=== PATIENT | female | born 1980 | race Caucasian/White ===

== ENCOUNTER 2018-07-17 15:25 | Outpatient (CLI) | payer BC, SELFPAY ==
[2018-07-17 15:47] LABS: HCT 40.4 % (36.0-46.0); HGB 13.6 g/dL (12.0-15.5); Mean Corp. HGB Concentration 33.7 g/dL (32.0-36.0); Mean Corpuscular Hemoglobin 31.9 pg (27.0-33.0); Mean Corpuscular Volume 94.6 fL (80-95); Mean Platelet Volume 10.8 fL (8.0-11.0); Platelet Count 250 x1000/uL (130-400); RBC 4.27 m/cumm (4.00-5.20); RBC Distribution Width 12.5 % (11.7-14.6); White Blood Cell Count 7.45 k/cumm (4.4-10.8)
[2018-07-17 16:57] LABS: TSH (W/Ref FT4) 2.21 uIU/mL (0.358-3.74)
== END 2018-07-17 15:45 ==
PROVIDERS: Visit Provider Nurse Practitioner Women's Health
DX: N92.0 Excessive and frequent menstruation with regular cycle (principal); R63.4 Abnormal weight loss
CPT/HCPCS: 36415; 85027; 84443

== ENCOUNTER 2018-07-22 10:31 | Outpatient (REF) | payer BC, SELFPAY ==
[2018-07-23 14:36] LABS: Chlamydia Result Negative; GC Result Negative; Specimen Description CERVIX
== END 2018-07-22 10:51 ==
LOC: LBN 10:31
PROVIDERS: Visit Provider Nurse Practitioner Women's Health
DX: Z11.3 Encounter for screening for infections with a predominantly sexual mode of transmission (principal)
CPT/HCPCS: 87491; 87591

== ENCOUNTER 2019-11-09 18:12 | Outpatient (REF) | payer OTHER, SELFPAY ==
[2019-11-09 17:33] LABS: Bilirubin Negative (Negative); Blood Trace-intact (Negative); Clarity Clear (Clear); Glucose Negative (Negative); Ketones Trace mg/dL (Negative); Leukocyte Esterase Negative (Negative); Nitrite Negative (Negative); Specific Gravity >= 1.030 (1.005-1.025); Urobilinogen 0.2 EU/dL (Up TO 0.2); pH 5.5 (5-8)
[2019-11-09 17:36] LABS: C & S Indicated? C&S Done As Ordered
[2019-11-09 17:57] LABS: Bacteria Negative HPF (Negative); Casts Negative LPF (Negative); Crystals Negative HPF (Negative); Epithelial Cells Moderate HPF (Negative); Mucus Negative (Negative); Other Cells Negative (Negative); RBC Negative HPF (0-2); WBC 0-2 HPF (0-5)
[2019-11-11 13:20] LABS: Chlamydia Result Negative (Negative); GC Result Negative (Negative)
== END 2019-11-09 18:32 ==
LOC: LBN 18:12
PROVIDERS: Visit Provider Obstetrics & Gynecology
DX: R10.2 Pelvic and perineal pain (principal); Z87.442 Personal history of urinary calculi; Z11.3 Encounter for screening for infections with a predominantly sexual mode of transmission
CPT/HCPCS: 87491; 87591; 81003; 81015; 87086

== ENCOUNTER 2019-11-12 02:06 | Outpatient (CLI) | payer OTHER, SELFPAY ==
--- NOTE | 2019-11-12 07:30 | DI.US_ITS ---
EXAM: US RENAL PELVIC TRANSVAGINAL CLINICAL HISTORY: pelvic pain, IUD in place,R10.2, H/O RENAL CALCULI, BACK PAIN. TECHNIQUE: Transabdominal and transvaginal exams were performed. Bernardo scale, color and spectral Doppler were used. COMPARISON: No exams were available for comparison FINDINGS: Renal ultrasound: Renal size in cm: Right: 10.9 cm left: 12.0 cm Echogenicity: Normal Hydronephrosis: No Cyst or mass: No Nephrolithiasis: No Bladder:Normal both ureteral jets were visualized. Prevoid vol:294 cc Postvoid vol:7 cc Pelvic ultrasound: The uterus measures 7.8 x 3.7 x 6.1 cm. An IUD is noted within the endometrium an d appears appropriately positioned. A 12 millimeter fundal fibroid is seen. The ovaries are normal in size. There is an involuting cyst of the right ovary. There is a trace amount of fluid in the cul-de-sac, likely physiologic. IMPRESSION: No evidence of hydronephrosis or renal calculi. The IUD appears appropriately positioned. DATA REPOSITORY:
== END 2019-11-12 02:26 ==
PROVIDERS: Visit Provider Obstetrics & Gynecology
DX: R10.2 Pelvic and perineal pain (principal); Z97.5 Presence of (intrauterine) contraceptive device; D25.9 Leiomyoma of uterus, unspecified
CPT/HCPCS: 76770; 76830; 76856

== ENCOUNTER → 2020-09-15 03:48 | Outpatient (CLI) | payer OTHER, SELFPAY ==
--- NOTE | 2020-09-15 | DI.RAD_ITS ---
EXAM: XR LUMBAR SPINE COMPLETE CLINICAL HISTORY: LOW BACK PAIN, M54.5. TECHNIQUE: 2D digital imaging was performed. COMPARISON: No exams were available for comparison FINDINGS: BONES: No fracture or destructive lesion. Vertebral bodies are unremarkable. No facet hypertrophy radha ntified. DISKS: Intervertebral disc spaces are maintained. ALIGNMENT: Lumbar spinal alignment is within normal limits. SOFT TISSUE: IUD. Bowel gas pattern unremarkable. IMPRESSION: Unremarkable radiographs of the lumbar spine. DATA REPOSITORY: RADIATION DOSE DELIVERED:
== END ==
PROVIDERS: Visit Provider Physician Assistant
DX: M54.5 Low back pain (principal)
CPT/HCPCS: 72110

== ENCOUNTER 2020-09-26 15:24 | Outpatient (REF) | payer OTHER, SELFPAY ==
--- NOTE | 2020-09-26 14:00 | PAPFT_PTH ---
PATIENT: Camila Prieto LOC: [facility] U#:[id number] AGE/SX: 39/F ROOM: RE09/26/[address]: CRYSTAL Trevino : 1980 BED: DIS: 09/26/2020 SPEC #: [id number] RECD: 09/26/20 17:27 STATUS: KO MEEKS #: [id number] JUNITO: 09/26/20 14:[address]: Kimber Munroe DEPT: [facility] Cytology RECD BY: Gianna Vasquez Tissues: 1 - CX/ENDOCX FOR PAP SMEARS Procedures: PAP THIN PREP/UVM Screening HPV DNA PROBE Comments: [id number]
[2020-10-02 14:56] LABS: Chlamydia Result Negative (Negative); GC Result Negative (Negative)
== END 2020-09-26 15:25 | disposition home or self-care (01) ==
LOC: LBN 15:24
PROVIDERS: Visit Provider Nurse Practitioner Family
DX: Z11.3 Encounter for screening for infections with a predominantly sexual mode of transmission (principal); Z12.4 Encounter for screening for malignant neoplasm of cervix; Z11.51 Encounter for screening for human papillomavirus (HPV)
CPT/HCPCS: 87491; 87591; 88142; 87624

== ENCOUNTER 2020-09-30 18:06 | Emergency (ER) | payer OTHER, SELFPAY ==
[2020-09-30] VITALS (19 sets, daily range): BP systolic 78–115; BP diastolic 41–74; PULSE 55–74; RESP 17–33; TEMP 36.6; O2SAT 92–100
--- NOTE | 2020-09-30 18:07 | W.ED.GENAD ---
Discharge Plan Disposition Patient Disposition: HOME Condition: Stable Discharge Details Clinical Impression: COVID-19 Primary Care Provider: Jaime Mcgee ED Provider: Anna Jones Home Meds and New Rx's Prescriptions: Continued cannabidiol 100 mg/mL solution 25 mg PO DAILY Qty: 100 RF: 0 multivitamin Tablet 1 tab PO DAILY RF: 0 cyanocobalamin (vitamin B-12) [Vitamin B-12] 500 mcg Tablet 500 mcg PO DAILY RF: 0 calcium 250 mg Tablet 250 mg PO DAILY RF: 0 cholecalciferol (vitamin D3) [Vitamin D3] 10 mcg (400 unit) Capsule 10 mcg PO DAILY RF: 0 Probiotic 3 billion cell Capsule 3,000 mmu cells PO DAILY RF: 0 naproxen sodium [Aleve] 220 mg Tablet 220 mg PO Q8H RF: 0 Discharge Instructions Instructions: Pulse Oximetry (ED), COVID-19 (Coronavirus Disease 2019) (ED) Additional Instructions: At this time, your history is most consistent with COVID-19. Please quarantine until advised you may stop by her primary care physician. Please monitor your oxygen saturation at home. If this becomes less than 90%, please seek care in the emergency department once again. As we discussed, encouraged upright, side-lying or stomach sleeping. Encourage water intake. You may use Tylenol as needed for discomfort. Care management will be in touch regarding outpatient infusions as discussed. If you develop inability stay hydrated, oxygen less than 90%, inability stay hydrated or other new/worsening symptoms please seek care urgently once again. Referrals: Jaime Mcgee [Primary Care Provider] - Medical Decision Making Patient is a pleasant 39-year-old female with past medical history pertinent for celiac disease, fibromyalgia. She presents today with chief complaint of shortness of breath and cough. Patient's is known Covid positive. Patient reports that symptoms began over the last 1 to 2 days. States that she lost sense of taste and smell yesterday. Noted shortness of breath today. Patient was initially evaluated in urgent care. Patient's hands were cool and they felt like they were having difficulty getting a good oxygen saturation reading. They state that with ambulation her oxygen was 91%. Patient denies any chest pain. Cough is dry. No fevers but she does endorse chills and generalized body aches. Denies any GI upset. No recent travel. Patient is typically quite active, no smoking. On exam, patient appears nontoxic. After ambulating in, patient oxygen is low at 92%. When at rest, came up to 97 to 98% on room air. Patient has frequent dry cough. She does not appear to be short of breath or in any respiratory distress. Lungs are clear. Normal cardiac exam. No lower extremity edema, calves are soft and nontender. Her bilateral hands and feet are cool to the touch but capillary refill is intact and she has 2+ distal pulses all extremities. No cyanosis. Patient history and clinical exam is most consistent with COVID-19. Lungs are clear, do not see any indication to suggest bacterial pneumonia at this time although feel like x-ray for further evaluation would be appropriate. With the patient's relative hypoxia, I do feel that labs would also be appropriate. Her hypoxia and shortness of breath does have pulmonary embolism of the differential, I feel that evaluation with D-dimer is appropriate. No chest pain to suggest ACS. No evidence to suggest dissection. No evidence to suggest DVT. Labs reviewed. No leukocytosis. Stable H&H. Patient with dimer is normal at 150. Lactate slightly elevated at 1.6. Patient is receiving hydration. Potassium slightly low at 3.4, plan to replenish this orally. Patient on antibiotics 13.1. Bilirubin 2.0. AST and ALT not elevated. LDH normal. Thyroid panel has been ordered previously by [facility] and was completed today as these were ordered to have been done tomorrow. FINDINGS: Lungs: The lungs are clear. There is no pulmonary vascular congestion. Pleural spaces: There are no pleural effusions present. Heart/Mediastinum: The cardiomediastinal silhouette is within normal limits. Bones/joints: Unremarkable. IMPRESSION: No active cardiopulmonary disease identified. I discussed the findings with the patient. She reports feeling improved at this time. Finds that positioning can be of great benefit and that when she will be more upright her shortness of breath is vastly improved. She is maintaining her oxygen at this time. We did discuss inpatient versus outpatient treatment of her presumed COVID-19. Patient did have a rapid negative today. Patient does have a pending PCR testing. As she was found to be relatively hypoxic, I would like for her to be considered for outpatient infusion for her presumed COVID-19. I have asked her care management team to help follow-up with this. Encourage hydration. We discussed [id number] and home regimen to help with symptomatic management. Return precautions were discussed. Patient will be sent home with home oxygen monitor. She will return if O2 is <90%. She will quarantine until cleared by her PCP. All of hjer questions and concerns were addressed, she is in agreement with this plan. HPI General Mode of arrival: ambulatory. Date/Time Provider Initiated Documentation: 09/30/20 18:07. Limitations to Documentation: no limitations. Information obtained by: patient, RN/MD (contacted by provider at [facility]) and RN notes reviewed. History of Present Illness 39 year old F presents to the emergency department with the chief complaint of SOB, cough, loss of taste/smell, hands/feet cold and tingling, described as moderate, with intensity rated at 6. Quality is described as aching (generalized body aches), Patient started experiencing this day(s) (2) and it has been constant. No relieving factors improve symptom(s), No exacerbating factors reported . Patient notes cough, fever/chills (chills, no fever) and shortness of breath; denies chest pain, diaphoresis, nausea/vomiting and rash. Patient did receive the following treatments prior to arrival, none Related Data Home Medications Medication Instructions Recorded Confirmed cannabidiol 100 mg/mL oral solution 25 mg PO DAILY #100 ml 07/17/18 09/30/20 Probiotic 3,000 mmu cells PO DAILY 09/30/20 09/30/20 calcium 250 mg PO DAILY 09/30/20 09/30/20 cholecalciferol (vitamin D3) 10 mcg PO DAILY 09/30/20 [Vitamin D3] cyanocobalamin (vitamin B-12) 500 mcg PO DAILY 09/30/20 [Vitamin B-12] multivitamin 1 tab PO DAILY 09/30/20 09/30/20 naproxen sodium [Aleve] 220 mg PO Q8H 09/30/20 09/30/20 Previous Rx's Medication Instructions Recorded cannabidiol 100 mg/mL oral solution 25 mg PO DAILY #100 ml 07/17/18 Allergies Allergy/AdvReac Type Severity Reaction Status Date / Time No Known Allergies Allergy Verified 09/30/20 18:21 Review of Systems Constitutional Constitutional: Reports as per HPI, Reports chills and Denies headache(s) Eyes Eyes: Reports as per HPI, Denies eye discharge and Denies irritation ENT Ears, Nose, Mouth, and Throat: Reports as per HPI, Denies change in voice, Denies headache(s), Denies sore throat, Denies throat swelling and Reports other (loss of taste and smell) Cardiovascular Cardiovascular: Reports as per HPI, Denies chest pain and Reports dyspnea Respiratory Respiratory: Reports as per HPI, Denies chest congestion, Reports cough, Denies hemoptysis, Denies pain on inspiration, Denies pain with cough, Reports dyspnea, Denies stridor and Denies wheezing Gastrointestinal Gastrointestinal: Reports as per HPI, Denies abdominal pain, Denies change in bowel habits, Denies nausea and Denies vomiting Integumentary/Breasts Skin/Breast: Reports as per HPI and Denies rash Neurologic Neurologic: Reports as per HPI and Denies headache(s) Allergic/Immunologic Allergic/Immunologic: Denies throat swelling and Denies wheezing PFSH Medical History (Updated 09/30/20 @ 20:34 by CHRISTINA De Leon) Celiac disease Duplex kidney Left Fibromyalgia History of kidney stones History of renal calculi Migraine Urinary pain Uterine fibroid Surgical History H/O dilation and curettage Fibroid removal, 07/23 S/P ureteral stent placement Left, 07/23 Family History Maternal Grandmother Breast cancer Mother Benign breast cyst in female S/P parathyroidectomy Social History Smoking/Tobacco Use Status: Never Smoking risk assessment performed?: Yes Alcohol Intake: never Drug use: Never Substance use type: does not use Do you feel safe at home: Yes Do you feel safe in your relationship?: Yes Female Reproductive History Menstrual Duration of menses: 8-10 days control method: progestin IUCD (Inserted by [employer] Lot # [id number] exp: November 2020) History History 1 Para 1 Hx # Term Pregnancies Multiple births Hx # Pregnancies Ectopic pregnancies AB induced Hx Number of Living Children AB spontaneous Exam Const General: cooperative, healthy appearing, comfortable, no acute distress, well developed and well groomed Nutritional Appearance: average body habitus and well nourished Orientation: alert and awake [facility] Head: normal to inspection, normocephalic and atraumatic Ears: hearing grossly normal bilaterally General nose exam: external nose normal Face and sinus: normal facial exam Mouth: oral mucosae normal, lip normal, tongue normal, oropharynx normal and moist mucous membranes Teeth and gingiva: dentition normal Throat: posterior oropharynx normal, tonsils normal and uvula midline Eyes General: appearance normal, both eyes and all related structures Neck Neck: normal visual inspection, full ROM, no lymphadenopathy and no meningeal signs Resp Effort & Inspection: normal respiratory effort, able to speak in complete sentences, cough Quality of cough: dry and no respiratory distress Auscultation: clear to auscultation bilaterally, no rales, no rhonchi and no wheezes Cardio Rate: regular rate Rhythm: regular rhythm Heart Sounds: S1 normal and S2 normal Skin General skin exam: no rashes or lesions noted Neuro General: patient alert and patient awake Cognition: normal cognition Speech: speech normal Gait: normal gait Extrem General: normal to inspection, full ROM, capillary refill normal, no pedal edema, no calf tenderness and normal gait Psych Appearance: grossly normal and well kempt Mental Status: mental status grossly normal Speech and Movement: speech and movement normal
--- NOTE | 2020-09-30 18:45 | DI.RAD_ITS ---
EXAM: XR PORTABLE CHEST AP CLINICAL HISTORY: SOB, COVID exposure. TECHNIQUE: 2D digital imaging was performed. COMPARISON: No exams were available for comparison FINDINGS: Heart size is normal. The mediastinum is not widened. Lungs are clear. No infiltrates nor obvious pleural effusions. IMPRESSION: No acute pulmonary findings on this single AP portable view of the chest. DATA REPOSITORY: RADIATION DOSE DELIVERED: All CT scans at this facility use at least one of these dose optimization techniques: automated exposure control; mA and/or kV adjustment per patient size (includes targeted e xams where dose is matched to clinical indication); or iterative reconstruction.
[2020-09-30 19:19] LABS: Lactate 1.6 mmol/L (0.6-1.4)
[2020-09-30 19:23] LABS: Abs Immature Grans 0.03 10^3/uL (0.0-0.06); Absolute Basophil Count 0.06 10^3/uL (0.0-0.2); Absolute Eosinophil Count 0.28 10^3/uL (0.0-0.7); Absolute Monocyte Count 0.75 10^3/uL (0.1-0.8); Absolute Neutrophil Count 7.44 10^3/uL (1.2-6.7); Basophils % 0.6; Eosinophils % 2.6; HCT 38.5 % (36.0-46.0); HGB 13.5 g/dL (11.2-15.7); Immature Grans % 0.3; Lymphocytes % 20.4; MCH 31.9 pg (27.0-33.0); MCHC 35.1 % (32.0-36.0); Neutrophils % 69.1; Nucleated RBC 0 %; Platelet Count 239 10^3/uL (130-400); RBC 4.23 10^6/uL (3.93-5.22); RDW 11.3 % (11.7-14.6); RDW-SD 37.6 fL; WBC 10.76 10^3/uL (4.4-10.8)
--- NOTE | 2020-09-30 19:37 | DI.VRAD_ITS ---
PROCEDURE INFORMATION: Exam: XR Chest Exam date and time: 09/30/2020 6:47 PM Age: 39 years old Clinical indication: Shortness of breath; Patient HX: SOB, covid exposure TECHNIQUE: Imaging protocol: XR of the chest Views: 1 view. COMPARISON: No relevant prior studies available. FINDINGS: Lungs: The lungs are clear. There is no pulmonary vascular congestion. Pleural spaces: There are no pleural effusions present. Heart/Mediastinum: The cardiomediastinal silhouette is within normal limits. Bones/joints: Unremarkable. IMPRESSION: No active cardiopulmonary disease identified. Dictated and Authenticated by: Cayden Francois MD. Ordering:ELVIA Castillo MD
[2020-09-30 19:39] LABS: ALT 15 U/L (14-59); AST 12 U/L (15-37); Albumin 4.3 g/dL (3.4-5.0); Alkaline Phosphatase 49 U/L (46-116); Anion Gap 13.1 mmol/L (3-11); BUN 11 mg/dL (7-18); CO2 23.9 mmol/L (21.0-32.0); CREATININE 0.8 mg/dL (0.55-1.02); Calcium 9.2 mg/dL (8.5-10.1); Chloride 105 mmol/L (98-107); Glucose 90 mg/dL (74-106); LDH 125 U/L (81-234); Potassium 3.4 mmol/L (3.5-5.1); Sodium 142 mmol/L (136-145); Total Protein 7.3 g/dL (6.4-8.2)
[2020-09-30 19:42] LABS: C-Reactive Protein < 0.05 mg/dL (0.0-0.3)
[2020-09-30 19:56] LABS: D-Dimer 150 ng/mlFEU (<500)
[2020-09-30 20:03] LABS: FREE T4 0.96 ng/dL (0.76-1.46)
[2020-09-30 20:08] LABS: Ferritin 75 ng/mL (8-252)
--- NOTE | 2020-09-30 20:35 | NUR.NOTE ---
Nursing Note: Referral given to Care Management to speak with patient about the antibody infusions. Lissy Ledezma
== END 2020-09-30 21:00 | disposition home or self-care (01) ==
PROVIDERS: Nurse Practitioner Family; Emergency Provider Physician Assistant; PCP Physician Assistant
DX: R06.02 Shortness of breath; R05 Cough; Z20.822 Contact with and (suspected) exposure to COVID-19
CPT/HCPCS: 80053; 99283; 71045; 82728; 83605; 83615; 84439; 84443; 85025; 85379; 86140

== ENCOUNTER 2020-11-03 02:53 | Outpatient (CLI) | payer OTHER, SELFPAY ==
[2020-11-03 18:35] LABS: TSH (W/Ref FT4) 1.93 uIU/mL (0.36-3.74)
[2020-11-06 09:10] LABS: FSH 6.6 mIU/mL (See Note)
== END 2020-11-03 02:54 | disposition home or self-care (01) ==
LOC: LBO 02:53
PROVIDERS: PCP Physician Assistant; Visit Provider Obstetrics & Gynecology
DX: N93.8 Other specified abnormal uterine and vaginal bleeding (principal); R61 Generalized hyperhidrosis
CPT/HCPCS: 36415; 83001; 84443

== ENCOUNTER → 2020-11-23 01:48 | Outpatient (CLI) | payer OTHER, SELFPAY ==
--- NOTE | 2020-11-23 | DI.MRI_ITS ---
Exam(s) MR LUMBAR SPINE WO EXAM: MR LUMBAR SPINE WO CLINICAL HISTORY: LBP, M54.5. TECHNIQUE: Multiplanar multisequence MRI of the Lumbar spine was performed. COMPARISON: CR XR LUMBAR SPINE COMPLETE from 09/15/2020 FINDINGS: Conus medullaris is at normal level. There is no evidence of conus mass nor subjacent clumping of in trathecal nerve roots to suggest arachnoiditis. The distal thecal sac appears unremarkable.There are bilateral Tarlov intra sacral CIS just below the distal aspect of the thecal sac at S2 level. Large r of these 2 is on the right side and measures 1.7 cm craniocaudal by 1 cm AP by 1 cm wide. The Tarl ov cyst on the opposite-left side is approximately half size of the right-sided Tarlov perineural cys t. There are no other findings within the sacral canal. There is no evidence of presacral mass. Bones:There are no fractures nor ominous osseous lesions in the lumbar vertebral bodies and visualize d sacrum. There are no Modic attach type sub endplate marrow changes. With respect to the individual levels... T12-L1: Unremarkable L1-2: Normal disc height and signal. No disc herniation nor central canal stenosis.No foraminal steno sis L2-3: Normal disc height. No disc herniation nor central canal stenosis.No foraminal stenosis.No face t arthropathy. L3-4: Normal disc height. No disc herniation or central canal stenosis.No foraminal stenosis.No face t arthropathy. L4-5: Normal disc height and signal. No disc herniation. No canal stenosis. No foraminal stenosis. No facet arthropathy. L5-S1: Normal disc height and signal. No disc herniation. No canal stenosis. No foraminal stenosis . No facet arthropathy. Soft tissues: paraspinal soft tissues appear unremarkable. IMPRESSION: 1. All the disc spaces in the lumbar spine appear normal. There is no evidence of disc herniation, c anal stenosis, foraminal stenosis, nor significant facet arthropathy. Also no significant osseous fi ndings. 2. 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 DATA REPOSITORY:
== END ==
PROVIDERS: PCP Physician Assistant; Visit Provider Physician Assistant
DX: M54.5 Low back pain (principal)
CPT/HCPCS: 72148